=== PATIENT | female | born 1985 | race Native Hawaiian/Other Pacific Islander ===

== ENCOUNTER 2016-12-17 06:40 | Emergency (ER) | payer SELFPAY ==
[~2016-12-17] VITALS: Ht 160 cm; Wt 73.0 kg
[~2016-12-17 06:40] MED LIST: ALBU.63PRN INH; AMOX875T PO
[2016-12-17 06:42] VITALS: BP 198/129; PULSE 97; RESP 15; TEMP 98.5; O2SAT 98
[2016-12-17] MEDS ORDERED: SODIUM CHLORIDE 0.9% FLUSH 10 ML FLUSH IVF PRN (07:00)
[2016-12-17] MEDS ORDERED: ONDANSETRON HCL 4 MG/2 ML VIAL IVP ONE (07:00)
[2016-12-17] MEDS ORDERED: LABETALOL HCL 100 MG/20 ML VIAL IV PUSH ONE (07:00)
--- NOTE | 2016-12-17 07:01 | PD ---
HPI Chief Complaint: Hypertension Time Seen by Provider: 06:51 Travel History International Travel<30 days: No Contact w/Intl Traveler<30days: No Traveled to known affect area: No History of Present Illness HPI The patient is a 31-year-old female who presents emergency department for nausea , vomiting, and headache. The patient is [place] speaking, her brother translates for her, per her request. The patient awakened at approximately 2 AM with nausea, had an episode of vomiting. The patient then developed a headache which is described as bilateral, frontal, radiating to the back. She also complains of mild chest discomfort associated with her headache and elevated blood pressure. The patient does have a history of hypertension, normally takes Norvasc 10 mg daily, but has not taken medications for 2 weeks. The patient did take a Tylenol migraine medication prior to arrival. The patient does have a history of hypertension, states she was sleeping when the nausea and vomiting occurred, denies any exertional symptoms prior to the headache. Her last missed a cycle was one week ago, she denies any . She denies any company abdominal pain or shortness of breath. She denies any significant edema to lower extremities. PFSH Past Surgical History Gynecologic Surgery: Yes (C Section ) Social History Alcohol Use: No Tobacco Use: No Substance Use: No Allergies-Medications (Allergen,Severity, Reaction): Coded Allergies: No Known Allergies (Unverified , 12/17/16) Reported Meds & Prescriptions Reported Meds & Active Scripts Active Norvasc (Amlodipine Besylate) 10 Mg Tab 10 Mg PO DAILY Trimox 875 Mg Tab (Amoxicillin) 875 Mg Tab 875 Mg PO Q12 10 Days Albuterol Sulfate 0.63 Mg/3 Ml Neb 1 Ea INH Q6HR Review of Systems Except as stated in HPI: all other systems reviewed are Neg Eyes: No: Blurred Vision HENT: Positive: Headaches, No: Lightheadedness Cardiovascular: Positive: Chest Pain or Discomfort Respiratory: No: Shortness of Breath Gastrointestinal: Positive: Nausea, Vomiting, No: Abdominal Pain Musculoskeletal: No: Edema Neurologic: No: Dizziness Physical Exam Narrative GENERAL: Awake, alert, pleasant 31-year-old female who appears her stated age and is in no acute respiratory distress. SKIN: Focused skin assessment warm/dry. HEAD: Atraumatic. Normocephalic. EYES: Pupils equal and round. Pupils are 3 mm bilateral and reactive. EOMs are intact. ENT: No nasal bleeding or discharge. Mucous membranes pink and moist. NECK: Trachea midline. No JVD. No meningeal signs. CARDIOVASCULAR: Regular rate and rhythm. No murmur appreciated. RESPIRATORY: No accessory muscle use. Clear to auscultation. Breath sounds equal bilaterally. GASTROINTESTINAL: Abdomen soft, non-tender, nondistended. No rebound tenderness. MUSCULOSKELETAL: No obvious deformities. No clubbing. No cyanosis. No edema. NEUROLOGICAL: Awake and alert. No obvious cranial nerve deficits. Motor grossly within normal limits. Normal speech. Nonfocal. Aerobic speaking. Follows commands without difficulty. PSYCHIATRIC: Appropriate mood and affect; insight and judgment normal. Data Data Last Documented VS Vital Signs Date Time Temp Pulse Resp B/P Pulse Ox O2 Delivery O2 Flow Rate FiO2 12/17/16 09:07 76 165/96 96 Room Air 12/17/16 08:18 18 12/17/16 06:42 98.5 Orders Complete Blood Count With Diff (12/17/16 06:59) Basic Metabolic Panel (Bmp) (12/17/16 06:59) Ct Brain W/O Iv Contrast(Rout) (12/17/16 06:59) Ecg Monitoring (12/17/16 06:59) Iv Access Insert/Monitor (12/17/16 06:59) Oximetry (12/17/16 06:59) Sodium Chloride 0.9% Flush (Ns Flush) (12/17/16 07:00) Ondansetron Inj (Zofran Inj) (12/17/16 07:00) Labetalol Inj (Trandate Inj) (12/17/16 07:00) Electrocardiogram (12/17/16 ) Chest, Single Ap (12/17/16 ) Creatine Kinase (Cpk) (12/17/16 07:10) Troponin I (12/17/16 07:10) Morphine Inj (Morphine Inj) (12/17/16 09:00) Ketorolac Inj (Toradol Inj) (12/17/16 09:00) Labs Laboratory Tests Test 12/17/16 07:10 White Blood Count 6.4 TH/MM3 Red Blood Count 5.24 MIL/MM3 Hemoglobin 12.6 GM/DL Hematocrit 38.6 % Mean Corpuscular Volume 73.6 FL Mean Corpuscular Hemoglobin 23.9 PG Mean Corpuscular Hemoglobin 32.5 % Concent Red Cell Distribution Width 15.9 % Platelet Count 264 TH/MM3 Mean Platelet Volume 8.5 FL Neutrophils (%) (Auto) 62.4 % Lymphocytes (%) (Auto) 30.2 % Monocytes (%) (Auto) 6.0 % Eosinophils (%) (Auto) 0.6 % Basophils (%) (Auto) 0.8 % Neutrophils # (Auto) 4.0 TH/MM3 Lymphocytes # (Auto) 1.9 TH/MM3 Monocytes # (Auto) 0.4 TH/MM3 Eosinophils # (Auto) 0.0 TH/MM3 Basophils # (Auto) 0.1 TH/MM3 CBC Comment AUTO DIFF Differential Comment AUTO DIFF CONFIRMED Platelet Estimate NORMAL Platelet Morphology Comment NORMAL Sodium Level 137 MEQ/L Potassium Level 3.6 MEQ/L Chloride Level 100 MEQ/L Carbon Dioxide Level 29.4 MEQ/L Anion Gap 8 MEQ/L Blood Urea Nitrogen 16 MG/DL Creatinine 0.78 MG/DL Estimat Glomerular Filtration 86 ML/MIN Rate Random Glucose 176 MG/DL Calcium Level 9.1 MG/DL Total Creatine Kinase 105 U/L Troponin I 0.02 NG/ML MDM Medical Decision Making Medical Screen Exam Complete: Yes Emergency Medical Condition: Yes Medical Record Reviewed: Yes Interpretation(s) EKG reveals normal sinus rhythm with a rate of 75. No ischemic changes or ectopy noted. QTC 460 ms, less than one half of the RR interval. Laboratory Tests Test 12/17/16 07:10 White Blood Count 6.4 TH/MM3 Red Blood Count 5.24 MIL/MM3 Hemoglobin 12.6 GM/DL Hematocrit 38.6 % Mean Corpuscular Volume 73.6 FL Mean Corpuscular Hemoglobin 23.9 PG Mean Corpuscular Hemoglobin 32.5 % Concent Red Cell Distribution Width 15.9 % Platelet Count 264 TH/MM3 Mean Platelet Volume 8.5 FL Neutrophils (%) (Auto) 62.4 % Lymphocytes (%) (Auto) 30.2 % Monocytes (%) (Auto) 6.0 % Eosinophils (%) (Auto) 0.6 % Basophils (%) (Auto) 0.8 % Neutrophils # (Auto) 4.0 TH/MM3 Lymphocytes # (Auto) 1.9 TH/MM3 Monocytes # (Auto) 0.4 TH/MM3 Eosinophils # (Auto) 0.0 TH/MM3 Basophils # (Auto) 0.1 TH/MM3 CBC Comment AUTO DIFF Differential Comment AUTO DIFF CONFIRMED Platelet Estimate NORMAL Platelet Morphology Comment NORMAL Sodium Level 137 MEQ/L Potassium Level 3.6 MEQ/L Chloride Level 100 MEQ/L Carbon Dioxide Level 29.4 MEQ/L Anion Gap 8 MEQ/L Blood Urea Nitrogen 16 MG/DL Creatinine 0.78 MG/DL Estimat Glomerular Filtration 86 ML/MIN Rate Random Glucose 176 MG/DL Calcium Level 9.1 MG/DL Total Creatine Kinase 105 U/L Troponin I 0.02 NG/ML Last Impressions Head CT 12/17/16 0659 Signed Impressions: Service Date/Time: Saturday, December 17, 2016 07:55 - CONCLUSION: No acute intracranial abnormality is identified. Kevin Barker MD Chest X-Ray 12/17/16 0000 Signed Impressions: Service Date/Time: Saturday, December 17, 2016 07:18 - CONCLUSION: No acute cardiopulmonary abnormality is identified. Kevin Barker MD Differential Diagnosis Differential diagnosis includes malignant hypertension, hypertensive urgency, hypertensive emergency, subarachnoid hemorrhage, acute coronary syndrome, noncompliance. Narrative Course IV was established, labs are drawn and sent, and the patient was placed on cardiac telemetry monitoring and continuous pulse oximetry monitoring. Patient' s blood pressure was elevated, she was administered labetalol [address] of the brain was obtained. Chest x-ray was ordered. Chest x -rays unremarkable. CT of the brain is negative. Troponin is unremarkable. The patient's blood pressure improved to 170/100, patient has a known history of hypertension. The patient was reevaluated, still has a mild headache, therefore, was administered Toradol and morphine. The patient is advised to take her amlodipine as previously directed and follow-up with her primary physician. Return if symptoms worsen or progress. Diagnosis Primary Impression: Hypertensive urgency Additional Impression: Cephalgia Qualified Code: R51 - Acute nonintractable headache, unspecified headache type Patient Instructions: General Instructions Additional Instructions: Please provide a patient a copy of her CT results and lab results at discharge. Norvasc as directed. Follow-up with a primary physician. Return if symptoms worsen or progress. Med/Other Pt SpecificInfo: Prescription(s) given Scripts Amlodipine (Norvasc)10 Mg Tab10 Mg PO DAILY #30 TAB Ref 2 Prov:Saad Vivas MD 12/17/16 Disposition: 01 DISCHARGE HOME Condition: Stable Saad Vivas MD December 17, 2016 07:01
[2016-12-17 07:14] VITALS: BP 175/120; PULSE 87; RESP 18; O2SAT 97
--- NOTE | 2016-12-17 07:45 | RADRPT ---
EXAM DATE/TIME: 12/17/2016 07:18 [facility] COMPARISON: CHEST PA & LAT, November 17, 2015, 17:24. INDICATIONS : Chest pain . MEDICAL HISTORY : None. SURGICAL HISTORY : section. ENCOUNTER: Initial ACUITY: 1 day PAIN SCORE: 4/10 LOCATION: Bilateral upper chest FINDINGS: Portable AP view of the chest demonstrates a normal-sized cardiac silhouette. No effusion, consolidat ion, or pneumothorax is visualized. The bones and soft tissues demonstrate no acute abnormality. EKG lines overlie the patient. CONCLUSION: No acute cardiopulmonary abnormality is identified. Kevin Barker MD on December 17, 2016 at 7:42 Board Certified Radiologist. This report was verified electronically.
[2016-12-17 07:46] LABS: BASOPHIL # 0.1 TH/MM3 (0-0.2); BASOPHIL % 0.8 % (0.0-2.0); EOSINOPHIL % 0.6 % (0.0-4.0); HEMATOCRIT 38.6 % (35.0-46.0); LYMPH % 30.2 % (9.0-44.0); LYMPHOCYTE # 1.9 TH/MM3 (1.0-4.8); MEAN CELL VOLUME 73.6 FL (80.0-100.0); MEAN CORPUSCULAR HEMOGLOBIN 23.9 PG (27.0-34.0); MEAN CORPUSCULAR HGB CONC 32.5 % (32.0-36.0); NEUT % 62.4 % (16.0-70.0); PLATELET COUNT 264 TH/MM3 (150-450); RED BLOOD COUNT 5.24 MIL/MM3 (4.00-5.30); RED CELL DISTRIBUTION WIDTH 15.9 % (11.6-17.2); WHITE BLOOD COUNT 6.4 TH/MM3 (4.0-11.0)
[2016-12-17 07:47] LABS: HEMO FLAGS AUTO DIFF
[2016-12-17 07:59] LABS: BICARBONATE 29.4 MEQ/L (21.0-32.0); POTASSIUM 3.6 MEQ/L (3.5-5.1)
[2016-12-17 08:18] VITALS: BP 173/104; PULSE 78; RESP 18; O2SAT 97
--- NOTE | 2016-12-17 08:18 | RADRPT ---
EXAM DATE/TIME: 12/17/2016 07:55 [facility] COMPARISON: No previous studies available for comparison. INDICATIONS : Cephalgia RADIATION DOSE: 33.15 CTDIvol (mGy) MEDICAL HISTORY : Hypertension. SURGICAL HISTORY : None. None. ENCOUNTER: Initial ACUITY: 1 day PAIN SCALE: 6/10 LOCATION: Bilateral cranial TECHNIQUE: Multiple contiguous axial images were obtained of the head. Using automated exposure control and adj ustment of the mA and/or kV according to patient size, radiation dose was kept as low as reasonably a chievable to obtain optimal diagnostic quality images. FINDINGS: CEREBRUM: The ventricles are normal. No evidence of midline shift, mass lesion, hemorrhage or acute infarction . No extra-axial fluid collections are seen. POSTERIOR FOSSA: The cerebellum and brainstem demonstrate no abnormality. The 4th ventricle is midline. The cerebell opontine angle is unremarkable. EXTRACRANIAL: Visualized sinuses are clear. SKULL: The calvaria is intact. No evidence of skull fracture. CONCLUSION: No acute intracranial abnormality is identified. Kevin Barker MD on December 17, 2016 at 8:13 Board Certified Radiologist. This report was verified electronically.
[2016-12-17 08:35] LABS: PLATELET ESTIMATE SMEAR NORMAL (NORMAL); PLATELET MORPHOLOGY NORMAL (NORMAL)
[2016-12-17 08:36] LABS: SCAN/DIFF AUTO DIFF CONFIRMED
[2016-12-17] MEDS ORDERED: AMLO10 PO (08:49)
[2016-12-17] MEDS ORDERED: MORPHINE SULFATE 4 MG/ML INJ IV PUSH ONE (09:00)
[2016-12-17] MEDS ORDERED: KETOROLAC TROMETHAMINE 30 MG/ML (IVP) VIAL IV PUSH ONE (09:00)
[2016-12-17 09:07] VITALS: BP 165/96; PULSE 76; O2SAT 96
--- NOTE | 2016-12-18 22:06 | EKG ---
Date Performed: 12/17/2016 Time Performed: 08:28:42 PTAGE: 31 years EKG: Sinus rhythm NORMAL ECG NO PREVIOUS TRACING DOCTOR: Tere Rand Interpretating Date/Time 12/18/2016 22:01:29
== END 2016-12-17 09:49 | disposition home or self-care (01) ==
LOC: NEPE 06:40
DX: I10 Essential (primary) hypertension (principal); R51 Headache; R07.9 Chest pain, unspecified; R11.2 Nausea with vomiting, unspecified
CPT/HCPCS: 70450; 71010; 80048; 82550; 84484; 85025; 93005; 96374; 96375; 99284; J1885; J2270; J2405

== ENCOUNTER 2017-03-02 18:10 | Emergency (ER) | payer SELFPAY ==
[~2017-03-02] VITALS: Ht 152.4 cm; Wt 75.0 kg
[~2017-03-02 18:10] MED LIST changes: +AMLO10 PO
[2017-03-02 18:11] VITALS: BP 178/104; PULSE 82; RESP 20; TEMP 98.1; O2SAT 99
[2017-03-02] MEDS ORDERED: SODIUM CHLOR 0.9% 1000 ML INJ 1,000 ML IV SCH (19:50)
[2017-03-02 19:52] VITALS: BP 154/102; PULSE 79; RESP 18; O2SAT 99
[2017-03-02] MEDS ORDERED: LOSA25TA PO (19:56)
[2017-03-02] MEDS ORDERED: METO25TA3 PO (19:56)
[2017-03-02] MEDS ORDERED: FAMOTIDINE 20 MG/2 ML VIAL IV PUSH ONE (20:00)
[2017-03-02] MEDS ORDERED: DEXAMETHASONE SOD PHOS 20 MG/5 ML VIAL IV PUSH ONE (20:00)
[2017-03-02] MEDS ORDERED: LIDOCAINE VISCOUS 2% SOLN 15 ML UDC PO ONE (20:00)
[2017-03-02] MEDS ORDERED: DICYCLOMINE HCL 10 MG CAP PO ONE (20:00)
[2017-03-02] MEDS ORDERED: diphenhydrAMINE HCL 50 MG/ML VIAL IV ONE (20:00)
[2017-03-02] MEDS ORDERED: METOCLOPRAMIDE HCL 10 MG/2 ML VIAL IV PUSH ONE (20:00)
[2017-03-02] MEDS ORDERED: ALUMINUM/MAGNESIUM/SIMETH 30 ML CUP PO ONE (20:00)
[2017-03-02] MEDS ORDERED: SODIUM CHLORIDE 0.9% FLUSH 10 ML FLUSH IV FLUSH PRN (20:00)
--- NOTE | 2017-03-02 20:02 | PD ---
HPI Chief Complaint: GI Complaint Time Seen by Provider: 19:38 Travel History International Travel<30 days: No Contact w/Intl Traveler<30days: No Traveled to known affect area: No History of Present Illness HPI Patient is a 31-year-old female with history of hypertension who presents to emergency room with multiple complaints. Patient reports that she woke up this morning and had a glass of milk, reports that after the middle, she felt nauseous and vomited. Patient reports that she vomited multiple times throughout the day, reports cramping throughout her abdomen. Patient reports that every time she vomits, she has sharp and stabbing chest pain. She reports resolution of chest pain after her vomiting resolves. Patient reports that she had a slight headache this morning, reports that the headache has progressed today as her vomiting has been progressively getting worse. Patient reports that she was able to eat a sandwich this afternoon around 4 PM. Patient was concerned that her blood pressure was higher than normal, she is taking losartan 25 mg as well as metoprolol 25 mg daily. Patient denies any chest pain at this time. Patient reports that headache is frontal in nature, denies any vision changes or photophobia. Denies Any fall or trauma to the head or neck. Patient denies chest pain or shortness breath at this time. Patient reports cramping to her abdomen, no pain at this time. Patient denies any fevers or chills. PFSH Past Medical History Hypertension: Yes Tetanus Vaccination: Unknown Influenza Vaccination: No ?: Not LMP: 02/27/17 : 3 Para: 3 Past Surgical History Surgical History: No Previous Surgery Section: Yes Gynecologic Surgery: Yes (C Section ) Social History Alcohol Use: No Tobacco Use: No Substance Use: No Allergies-Medications (Allergen,Severity, Reaction): Coded Allergies: No Known Allergies (Unverified , 03/02/17) Reported Meds & Prescriptions Reported Meds & Active Scripts Active Reported Metoprolol Tartrate 25 Mg Tab 25 Mg PO DAILY Losartan (Losartan Potassium) 25 Mg Tab 25 Mg PO DAILY Review of Systems General / Constitutional: No: Fever, Chills Eyes: No: Photophobia, Visual changes HENT: Positive: Headaches, Lightheadedness, No: Sore Throat, Neck Pain Cardiovascular: Positive: Chest Pain or Discomfort Respiratory: No: Shortness of Breath Gastrointestinal: Positive: Nausea, Vomiting, No: Abdominal Pain Genitourinary: No: Urgency, Frequency, Dysuria Musculoskeletal: No: Pain Skin: No Rash Neurologic: No: Weakness Psychiatric: No: Depression Endocrine: No: Polydipsia Hematologic/Lymphatic: No: Easy Bruising Physical Exam Narrative GENERAL: mild distress SKIN: Focused skin assessment warm/dry. HEAD: Atraumatic. Normocephalic. EYES: Pupils equal and round. No scleral icterus. No injection or drainage. ENT: No nasal bleeding or discharge. Mucous membranes pink and moist. NECK: Trachea midline. No JVD. CARDIOVASCULAR: Regular rate and rhythm. No murmur appreciated. RESPIRATORY: No accessory muscle use. Clear to auscultation. Breath sounds equal bilaterally. GASTROINTESTINAL: Abdomen soft, non-tender, nondistended. Hepatic and splenic margins not palpable. MUSCULOSKELETAL: No obvious deformities. No clubbing. No cyanosis. No edema. NEUROLOGICAL: Awake and alert. No obvious cranial nerve deficits. Motor grossly within normal limits. Normal speech. CN 2-12 grossly intact intact with no neurological deficits PSYCHIATRIC: Appropriate mood and affect; insight and judgment normal. Data Data Last Documented VS Vital Signs Date Time Temp Pulse Resp B/P Pulse Ox O2 Delivery O2 Flow Rate FiO2 03/02/17 19:52 79 18 154/102 99 Room Air 03/02/17 18:11 98.1 Orders Electrocardiogram (03/02/17 18:22) Complete Blood Count With Diff (03/02/17 19:50) Comprehensive Metabolic Panel (03/02/17 19:50) Lipase (03/02/17 19:50) Prothrombin Time / Inr (Pt) (03/02/17 19:50) Act Partial Throm Time (Ptt) (03/02/17 19:50) Urinalysis - C+S If Indicated (03/02/17 19:50) Iv Access Insert/Monitor (03/02/17 19:50) Ecg Monitoring (03/02/17 19:50) Oximetry (03/02/17 19:50) Sodium Chlor 0.9% 1000 Ml Inj (Ns 1000 M (03/02/17 19:50) Sodium Chloride 0.9% Flush (Ns Flush) (03/02/17 20:00) Chest, Single Ap (03/02/17 19:50) Famotidine Inj (Pepcid Inj) (03/02/17 20:00) Dicyclomine (Bentyl) (03/02/17 20:00) Al-Mag Hy-Si 40-40-4 Mg/Ml Liq (Mag-Al P (03/02/17 20:00) Lidocaine 2% Viscous (Xylocaine 2% Visco (03/02/17 20:00) Ed Urine Pregnancytest Poc (03/02/17 19:50) Ct Brain W/O Iv Contrast(Rout) (03/02/17 19:50) Dexamethasone Inj (Decadron Inj) (03/02/17 20:00) Metoclopramide Inj (Reglan Inj) (03/02/17 20:00) Diphenhydramine Inj (Benadryl Inj) (03/02/17 20:00) Labs Laboratory Tests Test 03/02/17 20:00 White Blood Count 7.9 TH/MM3 Red Blood Count 5.21 MIL/MM3 Hemoglobin 12.5 GM/DL Hematocrit 39.1 % Mean Corpuscular Volume 75.0 FL Mean Corpuscular Hemoglobin 24.1 PG Mean Corpuscular Hemoglobin 32.1 % Concent Red Cell Distribution Width 15.6 % Platelet Count 282 TH/MM3 Mean Platelet Volume 8.3 FL Neutrophils (%) (Auto) 67.4 % Lymphocytes (%) (Auto) 28.5 % Monocytes (%) (Auto) 3.3 % Eosinophils (%) (Auto) 0.2 % Basophils (%) (Auto) 0.6 % Neutrophils # (Auto) 5.3 TH/MM3 Lymphocytes # (Auto) 2.2 TH/MM3 Monocytes # (Auto) 0.3 TH/MM3 Eosinophils # (Auto) 0.0 TH/MM3 Basophils # (Auto) 0.0 TH/MM3 CBC Comment DIFF FINAL Differential Comment Prothrombin Time 10.5 SEC Prothromb Time International 1.0 RATIO Ratio Activated Partial 23.0 SEC Thromboplast Time Sodium Level 138 MEQ/L Potassium Level 3.6 MEQ/L Chloride Level 99 MEQ/L Carbon Dioxide Level 30.6 MEQ/L Anion Gap 8 MEQ/L Blood Urea Nitrogen 16 MG/DL Creatinine 0.78 MG/DL Estimat Glomerular Filtration 86 ML/MIN Rate Random Glucose 173 MG/DL Calcium Level 9.4 MG/DL Total Bilirubin 0.4 MG/DL Aspartate Amino Transf 19 U/L (AST/SGOT) Alanine Aminotransferase 36 U/L (ALT/SGPT) Alkaline Phosphatase 77 U/L Total Protein 8.2 GM/DL Albumin 4.0 GM/DL Lipase 121 U/L MDM Medical Decision Making Medical Screen Exam Complete: Yes Emergency Medical Condition: Yes Interpretation(s) EKG 1828: NSR at 81bpm, qt/qtc: 406/443, no acute st or t wave changes Vital Signs Date Time Temp Pulse Resp B/P Pulse Ox O2 Delivery O2 Flow Rate FiO2 03/02/17 19:52 79 18 154/102 99 Room Air 03/02/17 18:11 98.1 82 20 178/104 99 Room Air Differential Diagnosis Differential includes gastritis, gastroenteritis, gastric ulcer, cholecystitis, appendicitis, electrolyte abnormality, ACS, arrhythmia, dehydration, ICH though very unlikely Narrative Course Patient is a 31-year-old female with history of hypertension presents to emergency room with complaints of nausea vomiting and abdominal pain this morning. She reports that she has had multiple episodes of nausea vomiting, reports that when she vomits, she has sharp stabbing chest pain which resolved after she stops vomiting. Reports that she also has a diffuse headache from vomiting so much. Overall, patient's physical exam is benign. She does not have any cranial nerve deficits. Patient was placed on a awake overnight monitor upon arrival to the emergency room. An EKG is obtained, patient with no acute ST-T wave changes. Plan to obtain a blood work including liver function tests. Will administer IV fluids, antiemetics. CT head ordered as she does complain of hypertension with headache. Plan to treat patient's headache with migraine cocktail. We'll continue to monitor patient. Vital Signs Date Time Temp Pulse Resp B/P Pulse Ox O2 Delivery O2 Flow Rate FiO2 03/02/17 19:52 79 18 154/102 99 Room Air 03/02/17 18:11 98.1 82 20 178/104 99 Room Air Laboratory Tests Test 03/02/17 20:00 White Blood Count 7.9 TH/MM3 (4.0-11.0) Red Blood Count 5.21 MIL/MM3 (4.00-5.30) Hemoglobin 12.5 GM/DL (11.6-15.3) Hematocrit 39.1 % (35.0-46.0) Mean Corpuscular Volume 75.0 FL (80.0-100.0) Mean Corpuscular Hemoglobin 24.1 PG (27.0-34.0) Mean Corpuscular Hemoglobin 32.1 % Concent (32.0-36.0) Red Cell Distribution Width 15.6 % (11.6-17.2) Platelet Count 282 TH/MM3 (150-450) Mean Platelet Volume 8.3 FL (7.0-11.0) Neutrophils (%) (Auto) 67.4 % (16.0-70.0) Lymphocytes (%) (Auto) 28.5 % (9.0-44.0) Monocytes (%) (Auto) 3.3 % (0.0-8.0) Eosinophils (%) (Auto) 0.2 % (0.0-4.0) Basophils (%) (Auto) 0.6 % (0.0-2.0) Neutrophils # (Auto) 5.3 TH/MM3 (1.8-7.7) Lymphocytes # (Auto) 2.2 TH/MM3 (1.0-4.8) Monocytes # (Auto) 0.3 TH/MM3 (0-0.9) Eosinophils # (Auto) 0.0 TH/MM3 (0-0.4) Basophils # (Auto) 0.0 TH/MM3 (0-0.2) CBC Comment DIFF FINAL Differential Comment Prothrombin Time 10.5 SEC (9.8-11.6) Prothromb Time International 1.0 RATIO Ratio Activated Partial 23.0 SEC Thromboplast Time (24.3-30.1) Sodium Level 138 MEQ/L (136-145) Potassium Level 3.6 MEQ/L (3.5-5.1) Chloride Level 99 MEQ/L (98-107) Carbon Dioxide Level 30.6 MEQ/L (21.0-32.0) Anion Gap 8 MEQ/L (5-15) Blood Urea Nitrogen 16 MG/DL (7-18) Creatinine 0.78 MG/DL (0.50-1.00) Estimat Glomerular Filtration 86 ML/MIN (>89) Rate Random Glucose 173 MG/DL (74-106) Calcium Level 9.4 MG/DL (8.5-10.1) Total Bilirubin 0.4 MG/DL (0.2-1.0) Aspartate Amino Transf 19 U/L (15-37) (AST/SGOT) Alanine Aminotransferase 36 U/L (10-53) (ALT/SGPT) Alkaline Phosphatase 77 U/L (45-117) Total Protein 8.2 GM/DL (6.4-8.2) Albumin 4.0 GM/DL (3.4-5.0) Lipase 121 U/L (73-393) Last Impressions Chest X-Ray 03/02/17 1950 Signed Impressions: Service Date/Time: Thursday, March 02, 2017 20:10 - CONCLUSION: Normal examination. Benji Del Castillo MD CT of head: normal examination Patient reevaluated, patient feeling much better at this time. Reports complete resolution of her symptoms. All labs and studies reviewed with patient in detail. Signs and symptoms of when to return to ER was reviewed with patient and family. Patient given referral to [facility] for further follow up. Diagnosis Primary Impression: Cephalgia Qualified Code: R51 - Nonintractable headache, unspecified chronicity pattern , unspecified headache type Additional Impression: Nausea & vomiting Qualified Code: R11.2 - Non-intractable vomiting with nausea, unspecified vomiting type Patient Instructions: General Instructions Additional Instructions: Please follow-up with your primary care doctor in 2-3 days Return to ER as needed Please return to ER if symptoms worsen or progress Disposition: 01 DISCHARGE HOME Condition: Stable Sveta Baumann DO Mar 02, 2017 20:02 Sveta Baumann DO Mar 02, 2017 20:02
[2017-03-02 20:42] LABS: AUTOMATED NEUTROPHIL # 5.3 TH/MM3 (1.8-7.7); BASOPHIL % 0.6 % (0.0-2.0); EOSINOPHIL % 0.2 % (0.0-4.0); HEMATOCRIT 39.1 % (35.0-46.0); HEMO FLAGS DIFF FINAL; LYMPH % 28.5 % (9.0-44.0); LYMPHOCYTE # 2.2 TH/MM3 (1.0-4.8); MEAN CORPUSCULAR HEMOGLOBIN 24.1 PG (27.0-34.0); MEAN CORPUSCULAR HGB CONC 32.1 % (32.0-36.0); MONO % 3.3 % (0.0-8.0); NEUT % 67.4 % (16.0-70.0); PLATELET COUNT 282 TH/MM3 (150-450); RED BLOOD COUNT 5.21 MIL/MM3 (4.00-5.30); RED CELL DISTRIBUTION WIDTH 15.6 % (11.6-17.2); WHITE BLOOD COUNT 7.9 TH/MM3 (4.0-11.0)
[2017-03-02 20:52] LABS: ALT (GPT) 36 U/L (10-53); ANION GAP 8 MEQ/L (5-15); AST (GOT) 19 U/L (15-37); BICARBONATE 30.6 MEQ/L (21.0-32.0); BLOOD UREA NITROGEN 16 MG/DL (7-18); CHLORIDE 99 MEQ/L (98-107); GLOMERULAR FILTRATION RATE 86 ML/MIN (>89); POTASSIUM 3.6 MEQ/L (3.5-5.1); PROTHROMBIN TIME - PATIENT 10.5 SEC (9.8-11.6); SODIUM (NA) 138 MEQ/L (136-145)
[2017-03-02 20:55] LABS: ALKALINE PHOSPHATASE 77 U/L (45-117); TOTAL BILIRUBIN ADULT 0.4 MG/DL (0.2-1.0)
--- NOTE | 2017-03-02 20:56 | RADRPT ---
EXAM DATE/TIME: 03/02/2017 20:10 [facility] COMPARISON: CHEST SINGLE AP, December 17, 2016, 7:18. INDICATIONS : Chest pain. MEDICAL HISTORY : None. SURGICAL HISTORY : None. ENCOUNTER: Initial ACUITY: 1 day PAIN SCORE: 110 LOCATION: Bilateral lower chest FINDINGS: A single view of the chest demonstrates the lungs to be symmetrically aerated without evidence of mas s, infiltrate or effusion. The cardiomediastinal contours are unremarkable. Osseous structures are intact. CONCLUSION: Normal examination. Benji Del Castillo MD on March 02, 2017 at 20:54 Board Certified Radiologist. This report was verified electronically.
--- NOTE | 2017-03-02 21:27 | RADRPT ---
EXAM DATE/TIME: 03/02/2017 21:21 [facility] COMPARISON: CT BRAIN W/O CONTRAST, December 17, 2016, 7:55. INDICATIONS : Headaches. RADIATION DOSE: 28.86 CTDIvol (mGy) MEDICAL HISTORY : Hypertension. SURGICAL HISTORY : section. ENCOUNTER: Initial ACUITY: 1 day PAIN SCALE: 7/10 LOCATION: cranial TECHNIQUE: Multiple contiguous axial images were obtained of the head. Using automated exposure control and adj ustment of the mA and/or kV according to patient size, radiation dose was kept as low as reasonably a chievable to obtain optimal diagnostic quality images. DICOM format image data is available electro nically for review and comparison. FINDINGS: CEREBRUM: The ventricles are normal for age. No evidence of midline shift, mass lesion, hemorrhage or acute in farction. No extra-axial fluid collections are seen. POSTERIOR FOSSA: The cerebellum and brainstem are intact. The 4th ventricle is midline. The cerebellopontine angle i s unremarkable. EXTRACRANIAL: The visualized portion of the orbits is intact. SKULL: The calvaria is intact. No evidence of skull fracture. CONCLUSION: Normal examination. Benji Del Castillo MD on March 02, 2017 at 21:25 Board Certified Radiologist. This report was verified electronically.
--- NOTE | 2017-03-03 15:04 | EKG ---
Date Performed: 03/02/2017 Time Performed: 18:28:29 PTAGE: 31 years EKG: Sinus rhythm NORMAL ECG Compared to prior tracing no significant change PREVIOUS TRACING : 12/17/2016 08.28 DOCTOR: Melissa Dawkins Interpretating Date/Time 03/03/2017 14:58:42
== END 2017-03-02 22:48 | disposition home or self-care (01) ==
LOC: NEPC 18:10
DX: R51 Headache (principal); R11.2 Nausea with vomiting, unspecified; R10.9 Unspecified abdominal pain; R07.9 Chest pain, unspecified; I10 Essential (primary) hypertension; Z79.899 Other long term (current) drug therapy
CPT/HCPCS: 70450; 71010; 80053; 83690; 84703; 85025; 85610; 85730; 93005; 96374; 96375; 99285; J1100; J1200; J2765; J7030

== ENCOUNTER 2017-06-09 16:26 | Emergency (ER) | payer SELFPAY ==
[~2017-06-09] VITALS: Ht 152.4 cm; Wt 81.2 kg
[~2017-06-09 16:26] MED LIST changes: -ALBU.63PRN INH; -AMLO10 PO; -AMOX875T PO; +LOSA25TA PO; +METO25TA3 PO
[2017-06-09 16:28] VITALS: BP 176/104; PULSE 76; RESP 16; TEMP 98.4; O2SAT 99
[2017-06-09] MEDS ORDERED: SODIUM CHLORIDE 0.9% FLUSH 10 ML FLUSH IVF PRN ×2 (17:00)
[2017-06-09] MEDS ORDERED: AMLO5TAB2 PO ×2 (17:03)
[2017-06-09 17:05] VITALS: RESP 16; O2SAT 98
--- NOTE | 2017-06-09 17:06 | PD ---
HPI Chief Complaint: Chest Pain Time Seen by Provider: 16:53 Travel History International Travel<30 days: No Contact w/Intl Traveler<30days: No Traveled to known affect area: No History of Present Illness HPI Patient comes in complaining of sore throat, left-sided chest pain, and dry nonproductive cough that began today. Patient states she woke with a sore throat and other symptoms developed. Patient reports taking all her blood pressure medications as prescribed. Patient denies doing anything for the symptoms that started today. Pain is worse with deep inspiration feels like a sharp stabbing left-sided chest. Denies any radiation of the pain. Denies any nausea, vomiting, headache, numbness or tingling, abdominal pain, back pain, neck pain, or change in bowel or bladder. Patient was offered hospital dye maker services [employer] however patient is comfortable with her cousin translating for her. FORMERLY [facility] Past Medical History Cardiovascular Problems: Yes Hypertension: Yes ?: Not LMP: 05/30/17 : 3 Para: 3 Past Surgical History Section: Yes Gynecologic Surgery: Yes (C Section ) Social History Alcohol Use: No Tobacco Use: No Substance Use: No Allergies-Medications (Allergen,Severity, Reaction): Coded Allergies: No Known Allergies (Unverified , 06/09/17) Reported Meds & Prescriptions Reported Meds & Active Scripts Active Reported Amlodipine (Amlodipine Besylate) 5 Mg Tab 5 Mg PO DAILY Metoprolol Tartrate 25 Mg Tab 25 Mg PO DAILY Losartan (Losartan Potassium) 25 Mg Tab 25 Mg PO DAILY Review of Systems Except as stated in HPI: all other systems reviewed are Neg Physical Exam Narrative GENERAL: Well-developed, overly nourished, in no acute distress, and non-ill appearing. SKIN: Focused skin assessment warm and dry. HEAD: Atraumatic. Normocephalic. EYES: Pupils equal and round. EOMI. No scleral icterus. No injection or drainage. ENT: No nasal bleeding or discharge. Mucous membranes pink and moist. Tympanic membranes pearly hester bilaterally. Posterior pharynx nonerythematous without exudate. Uvula is midline. NECK: Trachea midline. No JVD. Supple. No nuclear rigidity. No cervical lymphadenopathy. CARDIOVASCULAR: Regular rate and rhythm. No murmur appreciated. RESPIRATORY: No accessory muscle use. No respiratory distress. Clear to auscultation. Breath sounds equal bilaterally. GASTROINTESTINAL: Abdomen soft, non-tender, nondistended, and no guarding. Hepatic and splenic margins not palpable. No pulsatile mass. MUSCULOSKELETAL: No obvious deformities. No clubbing. No cyanosis. No edema. Full range of motion. NEUROLOGICAL: Awake and alert. No obvious cranial nerve deficits. Motor grossly within normal limits. Normal speech. PSYCHIATRIC: Appropriate mood and affect; insight and judgment normal. Data Data Last Documented VS Vital Signs Date Time Temp Pulse Resp B/P (MAP) Pulse Ox O2 Delivery O2 Flow Rate FiO2 06/09/17 20:11 06/09/17 19:20 84 16 98 Room Air 06/09/17 16:28 98.4 Orders Orders Electrocardiogram (06/09/17 16:59) Basic Metabolic Panel (Bmp) (06/09/17 16:59) Ckmb (Isoenzyme) Profile (06/09/17 16:59) Complete Blood Count With Diff (06/09/17 16:59) Magnesium (Mg) (06/09/17 16:59) Prothrombin Time / Inr (Pt) (06/09/17 16:59) Act Partial Throm Time (Ptt) (06/09/17 16:59) Troponin I (06/09/17 16:59) Chest, Single Ap (06/09/17 16:59) Ecg Monitoring (06/09/17 16:59) Bilateral Bp Monitoring (06/09/17 16:59) Iv Access Insert/Monitor (06/09/17 16:59) Oximetry (06/09/17 16:59) Oxygen Administration (06/09/17 16:59) Sodium Chloride 0.9% Flush (Ns Flush) (06/09/17 17:00) Group A Rapid Strep Screen (06/09/17 16:59) Influenzae A/B Antigen (06/09/17 16:59) Ed Urine Pregnancytest Poc (06/09/17 17:05) CKMB (06/09/17 17:17) CKMB% (06/09/17 17:17) Acetaminophen (Tylenol) (06/09/17 18:45) Strep Culture (Group A) (06/09/17 18:00) Ed Discharge Order (06/09/17 19:19) Labs Laboratory Tests Test 06/09/17 17:17 White Blood Count 5.2 TH/MM3 Red Blood Count 5.26 MIL/MM3 Hemoglobin 13.0 GM/DL Hematocrit 39.8 % Mean Corpuscular Volume 75.7 FL Mean Corpuscular Hemoglobin 24.7 PG Mean Corpuscular Hemoglobin Concent 32.6 % Red Cell Distribution Width 14.6 % Platelet Count 266 TH/MM3 Mean Platelet Volume 8.6 FL Neutrophils (%) (Auto) 41.7 % Lymphocytes (%) (Auto) 44.1 % Monocytes (%) (Auto) 10.8 % Eosinophils (%) (Auto) 2.3 % Basophils (%) (Auto) 1.1 % Neutrophils # (Auto) 2.2 TH/MM3 Lymphocytes # (Auto) 2.3 TH/MM3 Monocytes # (Auto) 0.6 TH/MM3 Eosinophils # (Auto) 0.1 TH/MM3 Basophils # (Auto) 0.1 TH/MM3 CBC Comment DIFF FINAL Differential Comment Prothrombin Time 10.2 SEC Prothromb Time International Ratio 0.9 RATIO Activated Partial Thromboplast Time 24.8 SEC Blood Urea Nitrogen 12 MG/DL Creatinine 0.75 MG/DL Random Glucose 95 MG/DL Calcium Level 9.6 MG/DL Magnesium Level 2.2 MG/DL Sodium Level 136 MEQ/L Potassium Level 3.8 MEQ/L Chloride Level 104 MEQ/L Carbon Dioxide Level 25.8 MEQ/L Anion Gap 6 MEQ/L Estimat Glomerular Filtration Rate 89 ML/MIN Total Creatine Kinase 106 U/L Creatine Kinase MB 0.6 NG/ML Troponin I LESS THAN 0.02 NG/ML MDM Medical Decision Making Medical Screen Exam Complete: Yes Emergency Medical Condition: Yes Interpretation(s) EKG reviewed by Dr. Cueva shows sinus rhythm ventricular rate of 75. No STEMI. Last Impressions Chest X-Ray 06/09/17 1149 Signed Impressions: Service Date/Time: May 17:03 - CONCLUSION: 1. No acute cardiopulmonary findings. Stable compared to prior. Aramis Pena MD Laboratory Tests Test 06/09/17 17:17 White Blood Count 5.2 TH/MM3 (4.0-11.0) Red Blood Count 5.26 MIL/MM3 (4.00-5.30) Hemoglobin 13.0 GM/DL (11.6-15.3) Hematocrit 39.8 % (35.0-46.0) Mean Corpuscular Volume 75.7 FL (80.0-100.0) Mean Corpuscular Hemoglobin 24.7 PG (27.0-34.0) Mean Corpuscular Hemoglobin Concent 32.6 % (32.0-36.0) Red Cell Distribution Width 14.6 % (11.6-17.2) Platelet Count 266 TH/MM3 (150-450) Mean Platelet Volume 8.6 FL (7.0-11.0) Neutrophils (%) (Auto) 41.7 % (16.0-70.0) Lymphocytes (%) (Auto) 44.1 % (9.0-44.0) Monocytes (%) (Auto) 10.8 % (0.0-8.0) Eosinophils (%) (Auto) 2.3 % (0.0-4.0) Basophils (%) (Auto) 1.1 % (0.0-2.0) Neutrophils # (Auto) 2.2 TH/MM3 (1.8-7.7) Lymphocytes # (Auto) 2.3 TH/MM3 (1.0-4.8) Monocytes # (Auto) 0.6 TH/MM3 (0-0.9) Eosinophils # (Auto) 0.1 TH/MM3 (0-0.4) Basophils # (Auto) 0.1 TH/MM3 (0-0.2) CBC Comment DIFF FINAL Differential Comment Prothrombin Time 10.2 SEC (9.8-11.6) Prothromb Time International Ratio 0.9 RATIO Activated Partial Thromboplast Time 24.8 SEC (24.3-30.1) Blood Urea Nitrogen 12 MG/DL (7-18) Creatinine 0.75 MG/DL (0.50-1.00) Random Glucose 95 MG/DL (74-106) Calcium Level 9.6 MG/DL (8.5-10.1) Magnesium Level 2.2 MG/DL (1.5-2.5) Sodium Level 136 MEQ/L (136-145) Potassium Level 3.8 MEQ/L (3.5-5.1) Chloride Level 104 MEQ/L (98-107) Carbon Dioxide Level 25.8 MEQ/L (21.0-32.0) Anion Gap 6 MEQ/L (5-15) Estimat Glomerular Filtration Rate 89 ML/MIN (>89) Total Creatine Kinase 106 U/L (26-192) Creatine Kinase MB 0.6 NG/ML (0.5-3.6) Troponin I LESS THAN 0.02 NG/ML Differential Diagnosis Acute coronary syndrome, upper respiratory infection, strep pharyngitis, viral pharyngitis, influenza, electrolyte abnormality, pneumonia, other Narrative Course Patient seen and examined. Initial laboratory radiological studies were ordered. IV was established patient was placed on cardiac monitoring. 1830 patient reassessed reports improvement of symptoms. Discussed all findings with the exception of strep and influenza are still pending at this time. Strep and influenza were both negative. The patient was instructed to follow up with their physician and instructed to return if worsens, progressively worsening shortness of breath or difficulty breathing, persistent fever, chest pains or discomfort, inability to keep medication or fluids down with or without vomiting, or as needed. The patient has a prior history of hypertension and states has been taking their antihypertensive medications. The patient denied headache, changes in vision, nausea, vomiting, dizziness, weakness or loss of sensation. The patient denied any back or abdominal pain. The patient also denied any shortness of breath, dyspnea on exertion, orthopnea or PND. The patient denies any edema to extremities. The patients blood pressures at discharge were at an acceptable level. I discussed with the patient that the standard of care is to not adjust antihypertensive medications at this time and for them to follow up with a primary care physician for continued outpatient evaluation and potential adjustment of blood pressure medication at that time. Return warnings were given to the patient and the patient agreed with plan of care. Patient in no obvious distress upon re-evaluation. All pertinent laboratory/ Radiology result(s) discussed with patient/family. Discussed patient with Dr. Cueva prior to discharge, who is in agreement with plan of care and disposition. Any questions/concerns in reference to patient diagnosis/condition discussed and clarified prior to patient's discharge. Reinforced sheer importance of close follow up with patient's primary physician or primary care clinic. Instructed patient to return to ED immediately, if symptoms return/ worsen. Patient showed understanding of above instructions. Further instructions and recommendations were detailed in discharge paperwork. Patient ambulated without difficulty out of ED at discharge. Diagnosis Primary Impression: Upper respiratory infection Qualified Codes: J06.9 - Acute upper respiratory infection, unspecified Additional Impression: Hypertension Qualified Codes: I10 - Essential (primary) hypertension Referrals: [facility] Patient Instructions: Chronic Hypertension (ED), General Instructions, Upper Respiratory Infection (ED) Additional Instructions: Follow-up with your primary care physician in one to 5 days for reevaluation and possible adjustment of your antihypertensive medication. Drink plenty non- caffeinated and nonalcoholic fluids. Return to the emergency department if symptoms get worse. Disposition: 01 DISCHARGE HOME Condition: Stable Randy Hawk Jun 09, 2017 17:06
[2017-06-09 17:37] LABS: AUTOMATED NEUTROPHIL # 2.2 TH/MM3 (1.8-7.7); BASOPHIL # 0.1 TH/MM3 (0-0.2); BASOPHIL % 1.1 % (0.0-2.0); EOSINOPHIL # 0.1 TH/MM3 (0-0.4); EOSINOPHIL % 2.3 % (0.0-4.0); HEMATOCRIT 39.8 % (35.0-46.0); LYMPH % 44.1 % (9.0-44.0); LYMPHOCYTE # 2.3 TH/MM3 (1.0-4.8); MEAN CELL VOLUME 75.7 FL (80.0-100.0); MEAN CORPUSCULAR HEMOGLOBIN 24.7 PG (27.0-34.0); MEAN CORPUSCULAR HGB CONC 32.6 % (32.0-36.0); MEAN PLATELET VOLUME 8.6 FL (7.0-11.0); MONO % 10.8 % (0.0-8.0); MONOCYTE # 0.6 TH/MM3 (0-0.9); NEUT % 41.7 % (16.0-70.0); PLATELET COUNT 266 TH/MM3 (150-450); RED BLOOD COUNT 5.26 MIL/MM3 (4.00-5.30); RED CELL DISTRIBUTION WIDTH 14.6 % (11.6-17.2); WHITE BLOOD COUNT 5.2 TH/MM3 (4.0-11.0)
--- NOTE | 2017-06-09 17:40 | RADRPT ---
EXAM DATE/TIME: 06/09/2017 17:03 [facility] COMPARISON: CHEST SINGLE AP, March 02, 2017, 20:10. INDICATIONS : Chest pain. MEDICAL HISTORY : Hypertension. SURGICAL HISTORY : section. ENCOUNTER: Initial ACUITY: 1 day PAIN SCORE: 5/10 LOCATION: Bilateral chest FINDINGS: A single view of the chest demonstrates the lungs to be symmetrically aerated without evidence of mas s, infiltrate or effusion. The cardiomediastinal contours are unremarkable. Osseous structures are intact. CONCLUSION: 1. No acute cardiopulmonary findings. Stable compared to prior. Aramis Pena MD on June 09, 2017 at 17:38 Board Certified Radiologist. This report was verified electronically.
[2017-06-09 17:51] LABS: INTERNATIONAL NORMALIZED RATIO 0.9 RATIO; PROTHROMBIN TIME - PATIENT 10.2 SEC (9.8-11.6)
[2017-06-09 17:58] LABS: BICARBONATE 25.8 MEQ/L (21.0-32.0); BLOOD UREA NITROGEN 12 MG/DL (7-18); CALCIUM 9.6 MG/DL (8.5-10.1); CHLORIDE 104 MEQ/L (98-107); CREATININE 0.75 MG/DL (0.50-1.00); GLOMERULAR FILTRATION RATE 89 ML/MIN (>89); GLUCOSE,RANDOM 95 MG/DL (74-106); MAGNESIUM 2.2 MG/DL (1.5-2.5); SODIUM (NA) 136 MEQ/L (136-145)
[2017-06-09 18:03] LABS: TROPONIN I LESS THAN 0.02 NG/ML (0.02-0.05)
[2017-06-09 18:04] VITALS: BP_SYST 167; BP_SYST 176; BP_DIAS 104; BP_DIAS 96; PULSE 82; RESP 18; O2SAT 98
[2017-06-09] MEDS ORDERED: ACETAMINOPHEN 500 MG CPLT PO ONE ×2 (18:45)
[2017-06-09 19:20] VITALS: BP 140/97; PULSE 84; RESP 16; O2SAT 98
--- NOTE | 2017-06-09 23:11 | EKG ---
Date Performed: 06/09/2017 Time Performed: 17:13:37 PTAGE: 32 years EKG: Sinus rhythm MINIMAL VOLTAGE CRITERIA FOR LVH, CONSIDER NORMAL VARIANT BORDERLINE ECG PREVIOUS TRACING : 03/02/2017 18.28 Compared to prior tracing no significant change DOCTOR: Raman Dia Interpretating Date/Time 06/09/2017 23:10:24
== END 2017-06-09 20:01 | disposition home or self-care (01) ==
LOC: NEPE 16:26
DX: J06.9 Acute upper respiratory infection, unspecified (principal); I10 Essential (primary) hypertension; Z79.899 Other long term (current) drug therapy
CPT/HCPCS: 71010; 80048; 82550; 82552; 83735; 84484; 84703; 85025; 85610; 85730; 87081; 87804; 87880; 93005; 99285

== ENCOUNTER 2017-11-11 23:58 | Emergency (ER) | payer SELFPAY ==
[~2017-11-11] VITALS: Ht 160 cm; Wt 82.0 kg
[~2017-11-11 23:58] MED LIST changes: +AMLO5TAB2 PO
[2017-11-12 00:08] VITALS: BP 185/113; PULSE 75; RESP 16; TEMP 98.7; O2SAT 98
[2017-11-12] MEDS ORDERED: METO50TA PO (00:16)
--- NOTE | 2017-11-12 00:22 | PD ---
HPI Chief Complaint: Headache Time Seen by Provider: 00:05 Travel History International Travel<30 days: No Contact w/Intl Traveler<30days: No Traveled to known affect area: No History of Present Illness HPI 32-year-old female complains of elevated blood pressure mild aching headache. Patient has history of hypertension. Patient has been seen by a physician at the [facility]. Patient has been taking losartan 25 mg daily and metoprolol 50 mg daily. Patient states that she usually takes an extra losartan for elevated blood pressure. Patient states that her blood pressures has been running around 150/90 at home. Patient states that the blood pressure was elevated this evening she took 4 losartan this evening prior to arrival. Patient denies any headache now. Patient denies any chest pain or shortness of breath. PFSH Past Medical History Cardiovascular Problems: Yes Hypertension: Yes Tetanus Vaccination: Unknown Influenza Vaccination: No ?: Unknown : 3 Para: 3 Past Surgical History Section: Yes Gynecologic Surgery: Yes (C Section ) Social History Alcohol Use: No Tobacco Use: No Substance Use: No Allergies-Medications (Allergen,Severity, Reaction): Coded Allergies: No Known Allergies (Unverified Adverse Reaction, Unknown, 11/12/17) Reported Meds & Prescriptions Reported Meds & Active Scripts Active Reported Metoprolol Tartrate 50 Mg Tab 50 Mg PO DAILY Losartan (Losartan Potassium) 25 Mg Tab 25 Mg PO DAILY Review of Systems General / Constitutional: No: Fever Eyes: No: Visual changes HENT: Positive: Headaches Cardiovascular: No: Chest Pain or Discomfort Respiratory: No: Shortness of Breath Gastrointestinal: No: Abdominal Pain Genitourinary: No: Dysuria Musculoskeletal: No: Pain Skin: No Rash Neurologic: No: Weakness Psychiatric: No: Depression Endocrine: No: Polydipsia Hematologic/Lymphatic: No: Easy Bruising Physical Exam Narrative GENERAL: Well-nourished, well-developed patient. SKIN: Focused skin assessment warm/dry. HEAD: Normocephalic. EYES: No scleral icterus. No injection or drainage. NECK: Supple, trachea midline. No JVD or lymphadenopathy. CARDIOVASCULAR: Regular rate and rhythm without murmurs, gallops, or rubs. RESPIRATORY: Breath sounds equal bilaterally. No accessory muscle use. GASTROINTESTINAL: Abdomen soft, non-tender, nondistended. MUSCULOSKELETAL: No cyanosis, or edema. BACK: Nontender without obvious deformity. No CVA tenderness. Neurologic exam normal. Data Data Last Documented VS Vital Signs Date Time Temp Pulse Resp B/P (MAP) Pulse Ox O2 Delivery O2 Flow Rate FiO2 11/12/17 00:08 98.7 75 16 185/113 (137) 98 Orders Orders Clonidine (Catapres) (11/12/17 00:30) MDM Medical Decision Making Medical Screen Exam Complete: Yes Emergency Medical Condition: Yes Differential Diagnosis Differential diagnosis including uncontrolled hypertension, hypertensive urgency , hypertensive crisis. Narrative Course 32-year-old female with elevated blood pressure. History hypertension. Clonidine 0.1 mg p.o. given. 1:03 AM. Patient's blood pressures improving. Diagnosis Primary Impression: Uncontrolled hypertension Patient Instructions: General Instructions Additional Instructions: Continue with losartan and metoprolol as directed. Amlodipine as directed. Follow-up with personal physician. Return if persistent problem with blood pressure. Med/Other Pt SpecificInfo: Prescription(s) given Scripts Amlodipine (Amlodipine) 10 Mg Tab 10 MG PO DAILY for Blood Pressure Management, #30 TAB 0 Refills Prov: Denny Hughes MD 11/12/17 Disposition: 01 DISCHARGE HOME Condition: Stable Denny Hughes MD Nov 12, 2017 00:22
[2017-11-12] MEDS ORDERED: cloNIDine HCL 0.1 MG TAB PO ONE (00:30)
[2017-11-12] MEDS ORDERED: AMLO10TA2 PO (01:04)
[2017-11-12 01:28] VITALS: BP 165/97; PULSE 79; RESP 15; O2SAT 97
== END 2017-11-12 02:00 | disposition home or self-care (01) ==
LOC: NEPC 23:58
DX: I10 Essential (primary) hypertension (principal)
CPT/HCPCS: 99283